=== PATIENT | male | born 1955 | race Caucasian/White ===

== ENCOUNTER 2017-06-29 08:05 | Day surgery (SDC) | payer BC ==
[~2017-06-29] VITALS: Ht 188 cm; Wt 124.5 kg
[2017-06-29] VITALS (7 sets, daily range): BP systolic 121–132; BP diastolic 68–85; PULSE 57–78; TEMP 97.8–98.1
[~2017-06-29 08:05] MED LIST: TENORMIN100 MG PO
[2017-06-29] MEDS ORDERED: SYNTHROID0.075 MG/T PO (08:53)
[2017-06-29] MEDS ORDERED: COLACE 100100 MG/CAP PO (12:51)
[2017-06-29] MEDS ORDERED: MOTRIN 600600 MG/TAB PO (12:51)
[2017-06-29] MEDS ORDERED: PERCOCET 325 MG1 TA2 PO (12:52)
== END 2017-06-29 15:55 | disposition home or self-care (01) ==
LOC: SDCO 08:05
DX: K80.10 Calculus of gallbladder with chronic cholecystitis without obstruction (principal); K76.0 Fatty (change of) liver, not elsewhere classified; I10 Essential (primary) hypertension; E07.9 Disorder of thyroid, unspecified; Z86.711 Personal history of pulmonary embolism; Z68.34 Body mass index [BMI] 34.0-34.9, adult; F17.220 Nicotine dependence, chewing tobacco, uncomplicated; Z80.9 Family history of malignant neoplasm, unspecified; Z96.641 Presence of right artificial hip joint
CPT/HCPCS: J0690; J1100; J1885; J2175; J2270; J2405; J2550; J2704; J2710; J3010; J7120; Q9967